=== PATIENT | female | born 2000 | race Caucasian/White ===

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

== ENCOUNTER 2019-04-06 00:04 | Emergency (ER) | payer OTHER ==
[~2019-04-06] VITALS: Ht 157.5 cm; Wt 47.6 kg
[2019-04-06 00:10] VITALS: BP 102/62
--- NOTE | 2019-04-06 00:10 | NUR ---
to bed # 04 ambulatory
--- NOTE | 2019-04-06 00:35 | NUR ---
18 YO F BIB SELF AND BOYRFRIEND PRESENTS TO ED C/O 01/18 DIFFUSE ABDOMINAL PRESSURE THAT RADIATES TO MIDDLE/LOWER BACK THAT COMES AND GOES X 2-3 DAYS. PT ALSO REPORTS LARGE BLOOD IN STOOL BUT STATES SHE HAS BEEN SEEN FOR THIS ISSSUE. PT STATES SHE HAD A COLONOSCOPY THIS YEAR AND WAS DX WITH NONSPECIFIC COLON INFLAMMATION. PT REPORTS MILD NAUSEA, DENIES VOMITING, DIARRHEA, FEVERS. -- PT AWAKE, ALERT, CALM, COOPERATIVE. ANSWERS QUESTIONS WITHOUT DIFFICULTY. -- SKIN PINK, WARM, DRY. BREATHING EVEN, UNLABORED. -- ABD SOFT, FLAT, NON TENDER. BOWEL SOUNDS ACTIVE +4. PMH-- ASTHMA, IMMUNE DISORDER
--- NOTE | 2019-04-06 01:12 | NUR ---
DR. SPENCE EVALUATING AT BEDSIDE.
[2019-04-06] MEDS ORDERED: ONDANSETRON 4 MG ODT PO ONE (01:20)
[2019-04-06] MEDS ORDERED: KETOROLAC 60 MG/2 ML VIAL IM ONE (01:20)
--- NOTE | 2019-04-06 01:40 | NUR ---
MEDICATED PT WITH 60 MG IM TORADOL AND 4 MG ODT ZOFRAN FOR 8/10 ABD PAIN AND NAUSEA. WILL REASSESS.
--- NOTE | 2019-04-06 02:00 | NUR ---
PT REPORTS SLIGHT RELIEF IN PAIN; REPORTS 5/10 PAIN. DENIES NAUSEA AT THIS TIME.
[2019-04-06 02:03] VITALS: BP 107/60
--- NOTE | 2019-04-06 02:03 | NUR ---
Patient discharged with v/s stable. Written and verbal after care instructions given and explained. Patient alert, oriented and verbalized understanding of instructions. Ambulatory with steady gait. All questions addressed prior to discharge. ID band removed. Patient advised to follow up with PMD. Rx of Motrin and Zofran given. Patient educated on indication of medication including possible reaction and side effects. Opportunity to ask questions provided and answered.
== END 2019-04-06 02:03 | disposition home or self-care (01) ==
LOC: MED 00:04
DX: R10.13 Epigastric pain (principal); R11.0 Nausea; J45.909 Unspecified asthma, uncomplicated; Z88.7 Allergy status to serum and vaccine
CPT/HCPCS: 81002; 81025; 96372; 99283; J1885; Q0162

== ENCOUNTER 2021-03-16 20:08 | Emergency (ER) | payer OTHER ==
[~2021-03-16] VITALS: Ht 157.5 cm; Wt 43.5 kg
[2021-03-16 20:18] VITALS: BP 135/90
--- NOTE | 2021-03-16 20:18 | NUR ---
to bed ambulatory
--- NOTE | 2021-03-16 20:30 | NUR ---
RECEIVED IN BED 12 WITH C/O CP
[2021-03-16 21:18] LABS: BASOPHILS % (AUTO) 0.3 % (0.0-2.0); EOSINOPHILS % (AUTO) 0.8 % (0.0-4.0); HEMATOCRIT 40.6 % (36-48); HEMOGLOBIN 13.4 g/dL (12.0-16.0); LYMPHOCYTES # (AUTO) 1.8 K/uL (2.5-16.5); LYMPHOCYTES % (AUTO) 30.6 % (20.5-51.1); MEAN CORPUSCULAR HEMOGLOBIN 30 pg (27-31); MEAN CORPUSCULAR HGB CONC 33 g/dL (33-37); MEAN CORPUSCULAR VOLUME 90.5 fL (80-94); MONOCYTES # (AUTO) 0.6 K/uL (0.8-1.0); NEUTROPHILS # (AUTO) 3.4 K/uL (1.8-7.7); NEUTROPHILS % (AUTO) 58.3 % (42.2-75.2); PLATELET COUNT (AUTO) 278 K/uL (140-450); RED BLOOD CELL COUNT(AUTO) 4.49 MIL/uL (4.20-5.40); RED CELL DISTRIBUTION WIDTH 12.3 % (11.6-13.7); WHITE BLOOD COUNT (AUTO) 5.8 K/uL (4.8-10.8)
[2021-03-16 21:32] LABS: ALBUMIN 4.4 g/dL (3.4-5.0); ANION GAP 12.3 (8-16); CARBON DIOXIDE 28.4 mmol/L (21-32); CREATININE 0.9 mg/dL (0.6-1.3); POTASSIUM 3.7 mmol/L (3.5-5.1); TOTAL BILIRUBIN 0.3 mg/dL (0.0-1.0)
[2021-03-16 23:40] LABS: APPEARANCE,URINE CLEAR (CLEAR); BILIRUBIN,URINE NEGATIVE (NEGATIVE); BLOOD, URINE NEGATIVE (NEGATIVE); COLOR,URINE YELLOW (YELLOW); LEUKOCYTE ESTERASE ,URINE NEGATIVE (NEGATIVE); NITRITE, URINE NEGATIVE (NEGATIVE); UGLUCOSE NEGATIVE (NEGATIVE)
[2021-03-17] MEDS: NACL 0.9% 1,000 ML IV ONE (00:19)
[2021-03-17 01:11] VITALS: BP 128/86
--- NOTE | 2021-03-17 01:11 | NUR ---
Patient discharged with v/s stable. Written and verbal after care instructions given and explained. Patient verbalized understanding. Ambulatory with steady gait. All questions addressed prior to discharge. Advised to follow up with PMD.
== END 2021-03-17 01:11 | disposition home or self-care (01) ==
LOC: MED 20:08
DX: R07.9 Chest pain, unspecified (principal); R42 Dizziness and giddiness
CPT/HCPCS: 36415; 71045; 80053; 81003; 81025; 83690; 84484; 85025; 85379; 93005; 96360; 99285; J7030; Q0092